=== PATIENT | male | born 1945 | race Hispanic/Latino ===

== ENCOUNTER 2017-11-21 06:57 | Day surgery (SDC) | payer MEDICARE ==
[2017-11-15 10:04] VITALS: BMI 24.4
[2017-11-21] MEDS ORDERED: Lidocaine 2% Jelly (Uro-Jet) ONE (07:54)
[2017-11-21] MEDS ORDERED: cefTRIAXone IV 1 gm in Dextros 50 ML IVPB ONE (07:54)
[2017-11-21] MEDS ORDERED: Iohexol 240 (50 ml) ONE (07:54)
[2017-11-21] MEDS ORDERED: Propofol 10 mg/ml Inj (20 ML) ONE ×2 (08:57→10:12)
[2017-11-21] MEDS ORDERED: Midazolam 2 MG/2 ML VIAL ONE (09:55)
[2017-11-21] MEDS ORDERED: ePHEDrine 50 mg/ml Inj ONE (10:33)
[2017-11-21] MEDS ORDERED: HYDROmorphone 0.5 mg/0.5 ml ISec IVP PRN (10:51)
--- NOTE | 2017-11-21 11:08 | PCM.SURG1 ---
Surgeon's Initial Post Op Note - Surgeon's Notes Surgeon: Natalie Tamayo Flame Gouger: none Type of Anesthesia: IV Sedation Pre-Operative Diagnosis: Hx of bladder tumor Operative Findings: same. Abnormal bladder mucosa. R ureteral tumor Post-Operative Diagnosis: same Operation Performed: cysto, bilat rtg pyelogram. Bladder bx and fulg. R ureteroscopy, R ureteral bx and fulg. EUA Specimen/Specimens Removed: urine. bladder bx. ureteral bx Estimated Blood Loss: EBL {In ML}: 0 Blood Products Given: N/A Drains Used: No Drains Date of Surgery/Procedure: 11/21/17 Time of Surgery/Procedure: 10:55
--- NOTE | 2017-11-21 11:18 | RAD ---
PROCEDURE: Intraoperative Fluoroscopy. HISTORY: HX. OF BLADDER TUMOR FINDINGS: Fluoroscopic assistance was provided 38 seconds fluoroscopy time utilized. Radiation dose = 1.14 mGy. Please refer to the operative report from Dr. HAYS, [place].
[2017-11-21 12:19] VITALS: RESP 16
--- NOTE | 2017-11-21 12:21 | RAD ---
HISTORY: History of bladder tumor COMPARISON: Comparison made with prior abdominal radiograph dated 05/23/2017 FINDINGS: BOWEL: Nonobstructive/nonspecific bowel gas pattern. No free air. BONES: Mild degenerative spondylosis lumbar spine with levoscoliosis centered at the L2-L3 level. OTHER FINDINGS: None. IMPRESSION: Nonobstructive/nonspecific bowel gas pattern. TheNo active disease.
[2017-11-21] MEDS ORDERED: Iodixanol 320 MG/ML 100 ML BOTTLE IV ONE (12:36)
[2017-11-21 15:49] VITALS: BP 122/68; PULSE 62; TEMP 97.8; O2SAT 95
--- NOTE | 2017-11-22 09:13 | CT ---
PROCEDURE: CT Abdomen and Pelvis with and without intravenous contrast HISTORY: Dx: R distal ureteral tumor COMPARISON: None. TECHNIQUE: Axial images of the abdomen were obtained in the pre contrast, portal venous and delayed phases of enhancement. Coronal and sagittal reformats were generated. Contrast dose: Radiation dose: Total exam DLP = mGy-cm. This CT exam was performed using one or more of the following dose reduction techniques: Automated exposure control, adjustment of the mA and/or kV according to patient size, and/or use of iterative reconstruction technique. FINDINGS: LOWER THORAX: Elevated left hemidiaphragm. LIVER: Unremarkable. No gross lesion or ductal dilatation. GALLBLADDER AND BILE DUCTS: Unremarkable. PANCREAS: Unremarkable. No gross lesion or ductal dilatation. SPLEEN: Unremarkable. ADRENALS: Unremarkable. No mass. KIDNEYS AND URETERS: Markedly severe right hydroureteronephrosis with a transition point in the distal ureter roughly 3 centimeters from the UVJ. VASCULATURE: Unremarkable. No aortic aneurysm. BOWEL: Extensive colonic diverticulosis. APPENDIX: Normal appendix. PERITONEUM: Unremarkable. No free fluid. No free air. LYMPH NODES: Unremarkable. No enlarged lymph nodes. BLADDER: Unremarkable. REPRODUCTIVE: Unremarkable. BONES: No acute fracture. OTHER FINDINGS: Ventral abdominal wall hernia containing omental fat. . IMPRESSION: Markedly severe right hydroureteronephrosis with a transition point in the distal ureter roughly 3 centimeters from the UVJ.
--- NOTE | 2017-11-22 17:18 | OP ---
PROCEDURE DATE: 11/21/2017 PREOPERATIVE DIAGNOSIS: History of bladder tumor. POSTOPERATIVE DIAGNOSES: History of bladder tumor. Abnormal bladder mucosa. Right ureteral tumor. PROCEDURES: Cystoscopy. Bilateral retrograde ureteropyelogram. Bladder biopsy and fulguration. Right ureteroscopy. Right ureteral biopsy and fulguration. OPERATING SURGEON: Karen Montgomery M.D. DESCRIPTION OF PROCEDURE: The patient received perioperative antibiotics. The patient received anesthesia as per anesthesiologist. The patient was placed in lithotomy position. Genitalia prepped and draped sterilely. A 22-Namibian cystoscope sheath was introduced under direct vision. Procedure was performed under video endoscopic control as well as under fluoroscopic control. The urethra, prostate, and bladder were inspected with 30-degree lens. FINDINGS: There was no stricture in the anterior urethra. There was evidence of a prostatic hypertrophy. There were no mucosal lesions within the prostatic urethra. There was no bladder neck contraction. The bladder was inspected. There was noted to be moderate bladder trabeculation. There were areas of [id number] erythema of the bladder. A farm loan representative area of the bladder was biopsied using cold cup biopsy forceps. Fulguration was performed with ball electrode and electrocautery. Biopsy was obtained from the posterolateral wall on the left. There were no papillary bladder tumors. There was no bladder diverticulum. There was no bladder stone. The ureteral orifices at first could not be identified. The orifices were subsequently identified. Retrograde ureteropyelogram was performed on the left side. There was no evidence of filling defect or obstruction within the left ureter or collecting system. The right ureteral orifice was identified by symmetric location. The orifices were close together and close to the bladder neck as well as medially located. The right ureteral orifice was seen; however at first, the retrograde pyelogram could not be performed as the catheter could not be inserted due to the angulation and position of the ureteral orifice. A 0.035-inch guidewire was inserted into the orifice. The guidewire encountered obstruction in the level of the distal ureter. An open-ended catheter was inserted over the guidewire. Iodinated contrast dye was instilled. Again, obstruction was encountered. There was a filling defect outlined by the contrast, approximately 1 cm in size. There was no flow of contrast proximally. A 7-Namibian short rigid ureteroscope was advanced through the cystoscope sheath into the bladder. The ureteral orifices were identified by the working wire in place. A second wire was advanced through the ureteroscope. The ureteroscope was advanced in atraumatic fashion into the ureter. A papillary urothelial tumor was identified ureteroscopically. Multiple cold cup biopsies were obtained with the 3-Namibian biopsy forceps. Fulguration of the biopsy sites was performed with the ball electrode and electrocautery. Hemostasis was complete. The ureteroscope was removed. The bladder was reinspected with 70-degree lens to confirm the above findings. The site of the previous biopsy was identified and was not bleeding. The bladder was then drained. Cystoscope and sheath removed. Exam under anesthesia/rectal examination was performed. Prostate was supple and smooth. There was no abnormal pelvic mass fixation or induration. The patient was returned to supine position. The patient tolerated the procedure without complication. Karen Montgomery MD
== END 2017-11-21 15:35 | disposition home or self-care (01) ==
LOC: C.SDS 06:57
PROVIDERS: ATTEND Urology
DX: D49.4 Neoplasm of unspecified behavior of bladder (principal)
CPT/HCPCS: 52354; 74018; 74178; 82948; 87086; 88305; 88342; C1758; C1769; C1887; J0696; Q9966; Q9967

== ENCOUNTER 2018-01-30 05:45 | Inpatient (IN) | payer MEDICARE ==
[2018-01-11 08:01] VITALS: BMI 36.1
[2018-01-30] MEDS ORDERED: Bupivacaine HCl 0.5% PF (30 ml) Inj ONE (07:18)
[2018-01-30] MEDS ORDERED: ceFAZolin IV 1 gm in Dextrose 2 GM/100 ML BAG IVPB ONE (07:18)
[2018-01-30] MEDS ORDERED: Propofol 10 mg/ml Inj (20 ML) ONE (07:53)
[2018-01-30] MEDS ORDERED: Midazolam 2 MG/2 ML VIAL ONE (07:53)
[2018-01-30] MEDS ORDERED: Rocuronium 10 mg/ml (5 ml) ONE ×2 (09:09→09:41)
[2018-01-30] MEDS ORDERED: Succinylcholine Chloride 20 mg/ml Syr (5 ml) IV ONE (09:42)
[2018-01-30] MEDS ORDERED: Phenylephrine 10 mg/ml Inj ONE (09:42)
[2018-01-30] MEDS ORDERED: Neostigmine Methylsulfate 3mg/3ml Syringe IV ONE ×2 (09:42→10:21)
[2018-01-30] MEDS ORDERED: ePHEDrine 50 mg/ml Inj ONE (09:42)
--- NOTE | 2018-01-30 10:39 | PCM.SURG1 ---
Surgeon's Initial Post Op Note - Surgeon's Notes Surgeon: Martha Watson Chemical Manager: Natalie Montgomery Type of Anesthesia: General Endo Pre-Operative Diagnosis: R ureteral tumor,. R hydronephrosis Operative Findings: same Post-Operative Diagnosis: same Operation Performed: Robot-assisted R laparoscopic Nephro-ureterectomy Specimen/Specimens Removed: R kidney and ureter Estimated Blood Loss: EBL {In ML}: 100 Blood Products Given: N/A Drains Used: Gerber Wood Post-Op Condition: Good Date of Surgery/Procedure: 01/30/18 Time of Surgery/Procedure: 10:05
--- NOTE | 2018-01-30 10:44 | CP.PCM.PN ---
Subjective - Date & Time of Evaluation Date of Evaluation: 01/30/18 Time of Evaluation: 10:43 - Subjective Subjective: Consult dictated #[id number] Objective - Vital Signs/Intake and Output Vital Signs (last 24 hours): Temp Pulse Resp BP Pulse Ox 97.4 F L 91 H 20 146/78 96 01/30/18 06:12 01/30/18 06:12 01/30/18 06:12 01/30/18 06:12 01/30/18 06:12 Intake and Output: 01/30/18 01/30/18 06:59 18:59 Intake Total 1800 Output Total 50 Balance 1750 - Medications Medications: Current Medications Hydromorphone HCl (Dilaudid) 0.5 mg IVP Q5M PRN PRN Reason: Pain, severe (8-10) Stop: 01/30/18 12:25 Ondansetron HCl (Zofran Inj) 4 mg IVP ONCE PRN PRN Reason: Nausea/Vomiting Stop: 01/30/18 12:26
[2018-01-30] MEDS: HYDROmorphone 0.5 mg/0.5 ml ISec IVP PRN ×2 (11:35→12:48)
[2018-01-30] MEDS ORDERED: Lactated Ringer's 1,000 ML IV ONE (12:00)
[2018-01-30] MEDS: Potassium Ch 20mEq in D5-1/2NS 1,000 ML IV SCH (21:56)
--- NOTE | 2018-01-31 07:06 | OP ---
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 PROCEDURE PERFORMED: Right nephroureterectomy with bladder cuff and a partial cystectomy and a closure of the bladder. COMPLICATION: None. TYPE OF ANESTHESIA: General. PREOPERATIVE ANTIBIOTICS: 2 gm Ancef. DRAINS: CESAR and Nassar. DESCRIPTION OF PROCEDURE: The patient was taken to the OR, placed in supine position. After anesthetic was obtained, the patient was placed in right lateral position up. All the pressure points were padded. Table was flexed and then the patient was prepped and draped in usual manner. Then incision was made above the umbilicus, lateral. The patient was obese, so we adjusted these ports and then additional robotic port was placed medial to that as well as a total of five ports were placed and one ice cream freezer assistant port was placed. Then robot was docked, and then adhesions were first taken down and then retroperitoneal space was mobilized, and then colon and duodenum were kocherized and IVC was identified. Then adrenal was freed and upper pole was freed and then inferiorly ureter was found and ureter was lifted up, clip was placed, and then along the IVC, the kidney was mobilized laterally until we came to the hilum. Then we put a linear stapler vascular device and then adrenal was and then laterally kidney was freed and mobilized completely. Then ureter was further mobilized downward. Once we came to the pelvic ring, we readjusted the robot and further ureter was mobilized all the way down to the UVJ and then a part of the bladder along with cuff was resected and removed cleanly. Bladder closure was done and then serosal and muscular layer were done and then CESAR drain was placed. Then the specimen was placed in the #15 bag and removed; and then incision was closed using #1 PDS in running fashion and then skin was reapproximated with chanel. The patient tolerated the procedure well without complication. Annika Watson MD [facility] # [id number]
[2018-01-31 07:33] LABS: BASO % 0.5 % (0.0-2.0); EOS # 0.3 K/uL (0.0-0.7); EOS % 2.8 % (0.0-4.0); LYMPH # 1.6 K/uL (1.0-4.3); LYMPH % 17.6 % (20.0-40.0); MEAN CELL VOLUME 88.7 fL (80.0-94.0); MEAN CORPUSCULAR HEMOGLOBIN 30.9 pg (27.0-31.0); MEAN CORPUSCULAR HGB CONC 34.8 g/dL (33.0-37.0); MEAN PLATELET VOLUME 8.7 fL (7.2-11.7); MONO # 1.1 K/uL (0.0-0.8); MONO % 11.6 % (0.0-10.0); NEUT # 6.2 K/uL (1.8-7.0); NEUT % 67.5 % (50.0-75.0); NRBC % 0.1 % (0.0-2.0); RBC 4.15 Mil/uL (4.40-5.90); WHITE BLOOD COUNT 9.2 K/uL (4.8-10.8)
[2018-01-31 07:36] LABS: HEMOGLOBIN 12.8 g/dL (12.0-18.0)
--- NOTE | 2018-01-31 08:06 | CON ---
DATE: 01/30/2018 REASON FOR CONSULTATION: For medical management of hypertension, diabetes mellitus, status post right nephroureterectomy. HISTORY OF PRESENT ILLNESS: Mr. Davis is a 72-year-old male with past medical history of hypertension, hyperlipemia, diabetes mellitus, bladder CA, status post surgery in 2003, has been in remission until 2017 when he has recurrence of bladder tumor, cauterized twice, but on recent cystoscopy, found to have lesion in the right ureter, and the patient is scheduled for nephroureterectomy this morning. The patient underwent procedures successfully without any complications, and the patient is being admitted post surgery. Medical consult requested for medical management. When I examined the patient in the recovery area this morning and later this evening, the patient is complaining of soreness at the surgical site, feeling tired, but denies any headache or dizziness. Denies any chest pain, shortness of breath, or wheezing. Denies any nausea or vomiting. Denies any other neurological symptoms. All other symptoms reviewed and was found to be negative. PAST MEDICAL HISTORY: As described hyperlipemia, hypertension, diabetes mellitus, and bladder CA. PAST SURGICAL HISTORY: Tumor resection of the bladder in 2003, multiple cystoscopies. FAMILY HISTORY: Nothing contributory to the present illness. SOCIAL HISTORY: Denies alocohol. Denies any smoking at the present time. He was former smoker, quit more than 20 years ago. Denies any drug abuse. PERSONAL HISTORY: He is single, having 2 children. ALLERGIES: HE IS ALLERGIC TO BCG. MEDICATIONS: His medications include glipizide XL 2.5 mg daily, metformin 850 mg b.i.d., Norvasc 10 mg daily, Zocor 10 mg at bedtime, Toprol XL 75 mg p.o. daily, and vitamin B12 of 500 mcg daily. REVIEW OF SYSTEMS: As described in history of present illness. All other systems reviewed and were found to be negative. PHYSICAL EXAMINATION: GENERAL: Elderly obese male, lying in bed, in no acute distress. VITAL SIGNS: Blood pressure 114/69, pulse 69, respirations 20, temperature 97.5 degree Fahrenheit, O2 sat is 95% on 2 liters nasal cannula. HEENT: Pupils equal, round, and reacting to light and accommodation. Extraocular muscles intact. No icterus. No pallor. No oral thrush. No pharyngeal congestion. NECK: Supple. No JVD. LUNGS: Bilateral vesicular breath sounds. No wheezing. No rhonchi. CVS: S1 and S2 present and regular. ABDOMEN: Soft. Bowel sounds present. Tenderness present at the surgical site. Nassar in place. VESSEL ORDINARY SEAMAN: Alert, awake, and oriented x3. No focal deficits noted. EXTREMITIES: No edema. Palpable peripheral pulses. LABORATORY DATA: Accu-chek 128, 192, 169, 133. ASSESSMENT AND PLAN: Elderly male with history of hypertension, hyperlipemia, diabetes mellitus, history of bladder carcinoma, status post tumor resection with recurrence, now with , underwent nephroureterectomy this morning and the patient is being admitted postoperatively for postoperative care. Medical consult requested for medical management of his hypertension and diabetes. 1. Status post nephroureterectomy right for tumor recurrence in the ureter. 2. Hypertension. 3. Diabetes mellitus. 4. Hyperlipemia. PLAN: We will continue with pain medications and IV fluids. Advance diet as per Urology. Blood pressure is stable. We will hold blood pressure medications for tonight. Repeat labs in the morning. Restart all his medications once he is on p.o. diet. Monitor his blood pressure, do Accu-Chek before every meals and at bedtime with sliding scale coverage. Alter bed to chair as ordered. We will add further recommendation as his clinical course progresses. Alonzo Childress MD
[2018-01-31] MEDS: (Novolin R) Insulin Human Regular 100 units/ml vial SC SCH ×4 (08:17→22:15)
[2018-01-31 09:03] LABS: ALB/GLOB RATIO 1.1 (1.0-2.1); ALBUMIN 3.1 g/dL (3.5-5.0); ALT/SGPT 33 U/L (21-72); AST/SGOT 29 U/L (17-59); BLOOD UREA NITROGEN 14 mg/dL (9-20); GFR AFRICAN-AMERICAN > 60; GFR NON-AFRICAN AMERICAN 60
[2018-01-31] MEDS: Potassium Ch 20mEq in D5-1/2NS 1,000 ML IV SCH ×2 (09:07→17:15)
--- NOTE | 2018-01-31 09:22 | CP.PCM.PN ---
Subjective - Date & Time of Evaluation Date of Evaluation: 01/31/18 Time of Evaluation: 09:22 - Subjective Subjective: Progress note dictated #[id number] Objective - Vital Signs/Intake and Output Vital Signs (last 24 hours): Temp Pulse Resp BP Pulse Ox 98.3 F 71 18 111/65 94 L 01/31/18 07:00 01/31/18 07:00 01/31/18 07:00 01/31/18 07:00 01/31/18 07:00 Intake and Output: 01/31/18 01/31/18 06:59 18:59 Intake Total 1960 Output Total 912 Balance 1048 - Medications Medications: Current Medications Docusate Sodium (Colace) 100 mg PO TID DOMI Last Admin: 01/31/18 09:09 Dose: 100 mg Hydromorphone/Sodium Chloride (Dilaudid Pharmaceutical Representative) 3.6 mg IV Q4H PRN; Protocol PRN Reason: Pain, severe (8-10) Potassium Chloride/Dextrose/Sod Cl (Potassium Chl 20 Meq In D5-1/2ns) 1,000 mls @ 100 mls/hr IV .Q10H DOMI Last Admin: 01/31/18 09:07 Dose: 100 mls/hr Cefazolin Sodium 1,000 mg/ (Sodium Chloride) 100 mls @ 100 mls/hr IVPB Q8H DOMI PRN Reason: Protocol Last Admin: 01/31/18 09:09 Dose: 100 mls/hr Insulin Human Regular (Novolin R) 1 unit SC ACHS DOMI PRN Reason: Protocol Last Admin: 01/31/18 08:17 Dose: 1 u - Labs Labs: 01/31/18 07:00 01/31/18 07:00
[2018-01-31] MEDS ORDERED: Alum-Mag Hydrox-Simethicone Susp (30 mL) PO PRN (09:52)
--- NOTE | 2018-01-31 10:53 | PCM.URO ---
Urology Progress Note - General General: No Complaints, Tolerating Diet - Subjective Abdominal Pain: Yes Flank Pain: No Nausea: No Vomiting: No Hematuria: No Dsypnea: No Chest Pain: No Fever & Chills: No - Objective Lab Studies: Reviewed Lab Results Last 24 Hours: Laboratory Results - last 24 hr 01/30/18 01/30/18 01/30/18 11:25 16:10 21:38 WBC RBC Hgb Hct MCV MCH MCHC RDW Plt Count MPV Neut % (Auto) Lymph % (Auto) Woodruff % (Auto) Eos % (Auto) Baso % (Auto) Neut # (Auto) Lymph # (Auto) Woodruff # (Auto) Eos # (Auto) Baso # (Auto) Sodium Potassium Chloride Carbon Dioxide Anion Gap BUN Creatinine Est GFR ( Amer) Est GFR (Non-Af Amer) POC Glucose (mg/dL) 192 H 169 H 133 H Random Glucose Calcium Total Bilirubin AST ALT Alkaline Phosphatase Total Protein Albumin Globulin Albumin/Globulin Ratio 01/31/18 01/31/18 01/31/18 06:41 07:00 07:00 WBC 9.2 RBC 4.15 L Hgb 12.8 D Hct 36.8 MCV 88.7 MCH 30.9 MCHC 34.8 RDW 14.0 Plt Count 164 MPV 8.7 Neut % (Auto) 67.5 Lymph % (Auto) 17.6 L Woodruff % (Auto) 11.6 H Eos % (Auto) 2.8 Baso % (Auto) 0.5 Neut # (Auto) 6.2 Lymph # (Auto) 1.6 Woodruff # (Auto) 1.1 H Eos # (Auto) 0.3 Baso # (Auto) 0.0 Sodium 136 Potassium 4.3 Chloride 102 Carbon Dioxide 25 Anion Gap 14 BUN 14 Creatinine 1.2 Est GFR ( Amer) > 60 Est GFR (Non-Af Amer) 60 POC Glucose (mg/dL) 163 H Random Glucose 148 H Calcium 8.0 L Total Bilirubin 0.8 AST 29 ALT 33 Alkaline Phosphatase 49 Total Protein 5.8 L Albumin 3.1 L D Globulin 2.8 Albumin/Globulin Ratio 1.1 Intake & Output: Intake & Output 01/30/18 01/31/18 01/31/18 18:59 06:59 18:59 Intake Total 2100 1960 Output Total 380 912 Balance 1720 1048 Intake: IV 2100 Intake, IV Amount 1600 Right Hand 1600 Oral 360 Output: Drainage 20 12 Lower Abdomen 12 Urine 360 900 Urethral (Nassar) 900 Vital Signs: Vital Signs - 24 hr 01/30/18 01/30/18 01/30/18 11:00 11:15 11:30 Temperature Pulse Rate 56 L 58 L 58 L Respiratory 17 14 18 Rate Blood Pressure 110/58 L 109/58 L 112/57 L O2 Sat by Pulse 95 97 97 Oximetry 01/30/18 01/30/18 01/30/18 11:45 12:00 12:15 Temperature Pulse Rate 61 61 62 Respiratory 22 21 20 Rate Blood Pressure 114/59 L 120/60 115/60 O2 Sat by Pulse 98 98 99 Oximetry 01/30/18 01/30/18 01/30/18 12:30 12:45 13:00 Temperature Pulse Rate 63 62 64 Respiratory 20 18 17 Rate Blood Pressure 118/61 111/58 L 108/56 L O2 Sat by Pulse 95 100 100 Oximetry 01/30/18 01/30/18 01/30/18 13:30 14:00 15:00 Temperature 97.3 F L 97.5 F L Pulse Rate 67 67 69 Respiratory 19 17 20 Rate Blood Pressure 111/57 L 115/57 L 114/69 O2 Sat by Pulse 99 98 95 Oximetry 01/30/18 01/30/18 01/31/18 19:22 23:30 04:15 Temperature 97.7 F 97.8 F Pulse Rate 66 69 72 Respiratory 20 20 Rate Blood Pressure 108/65 114/66 O2 Sat by Pulse 95 Oximetry 01/31/18 07:00 Temperature 98.3 F Pulse Rate 71 Respiratory 18 Rate Blood Pressure 111/65 O2 Sat by Pulse 94 L Oximetry - Physical Exam Abdominal Exam: Soft, Non-Tender. absent: Non-Distended Bowel Sounds: Hypoactive (Lungs-clear Heart- reg rhythm) Dressing: Dry, Intact Back: No CVA Tenderness Genitalia: Without Inflammation Urinary Catheter Draining Well: Yes Urine Color: Clear, Yellow Extremities: Normal: Bilateral - Male Phallus: Normal Scrotum: Normal Testes: Normal: Bilateral - Plan Advance Diet: Yes Wound Care: Yes Catheter Care: Yes Intake & Output: Yes See Orders: Yes Additional Information: Imp: progressing well, post R nephroureterectomy - Date & Time of Note Date: 01/31/18 Time: 10:35
[2018-01-31 16:03] VITALS: RESP 20
--- NOTE | 2018-02-01 01:24 | PN ---
DATE: 01/31/2018 SUBJECTIVE: The patient was seen and examined at the bedside. The patient is still complaining of soreness at the surgical site. He is still trying to get out of bed, on pump to start pain medication. Denies any new complaints. PHYSICAL EXAMINATION: GENERAL: Elderly male, lying in bed, in no acute distress. VITAL SIGNS: Blood pressure 112/66, pulse 69, respirations 20, temperature 98.1 degrees Fahrenheit, O2 sat is 95% on 2 liters nasal cannula. Intake is 4060 mL, output is 1292 mL. HEENT: Pupils equal, reacting to light and accommodation. Extraocular muscles intact. No icterus. No pallor. NECK: Supple. No JVD. LUNGS: Bilateral vesicular breath sounds. Bilateral occasional basal crackles heard. CVS: S1 and S2 present and regular. ABDOMEN: Soft. Bowel sounds present. Tenderness present. Dressing in place. Drain with minimal fluid. Muffled bowel sounds. RETORT KILN BURNER: Alert, awake, and oriented x3. No focal deficits noted. EXTREMITIES: No edema. Palpable peripheral pulses. MEDICATIONS: Include Maalox as needed, cefazolin 1 gm IV every 8 hours, Colace 100 mg p.o. t.i.d., Dilaudid GENERAL PASSENGER AGENT IV every 4 hours p.r.n., Protonix 40 mg daily, IV fluids 100 mL an hour. LABORATORY DATA: Labs from this morning: WBC 9.2, hemoglobin 12.8, hematocrit 36.8, platelets 164. Sodium 136, potassium 4.3, chloride 102, bicarb 25, BUN 14, creatinine 1.2, glucose 163, calcium 8. Total bilirubin 0.8, AST 29, ALT 33, alkaline phosphatase 49, total protein 5.8, albumin 3.1. ASSESSMENT AND PLAN: Elderly male with history of hypertension, hyperlipidemia, diabetes mellitus, history of bladder cancer, status post tumor resection but recurrence of the tumor affecting the ureter, underwent nephroureterectomy. The patient's blood pressure is stable without medication postoperatively. We will hold antihypertensives. The patient is still on clear liquids. We will restart his medications once the patient is advanced to solids. We will give Maalox as needed for dyspepsia and Protonix 40 mg IV daily. Out of bed to chair. Wound care and pain management as per Urology. creative services producer for discharge planning. Alonzo Childress MD [facility] # [id number]
[2018-02-01] MEDS: Potassium Ch 20mEq in D5-1/2NS 1,000 ML IV SCH ×2 (03:19→13:48)
[2018-02-01] MEDS: (Novolin R) Insulin Human Regular 100 units/ml vial SC SCH ×4 (07:46→22:53)
[2018-02-01] MEDS ORDERED: ceFAZolin IV 1 gm in Dextrose 1 GM/50 ML BAG IVPB SCH (10:00)
--- NOTE | 2018-02-01 10:07 | CP.PCM.PN ---
Subjective - Date & Time of Evaluation Date of Evaluation: 02/01/18 Time of Evaluation: 10:07 - Subjective Subjective: Progress note dictated #[id number] Objective - Vital Signs/Intake and Output Vital Signs (last 24 hours): Temp Pulse Resp BP Pulse Ox 98.4 F 74 20 136/76 95 02/01/18 07:15 02/01/18 07:15 02/01/18 07:15 02/01/18 07:15 02/01/18 07:15 Intake and Output: 02/01/18 02/01/18 06:59 18:59 Intake Total 2080 Output Total 1145 Balance 935 - Medications Medications: Current Medications Al Hydrox/Mg Hydrox/Simethicone (Maalox Plus 30 Ml) 30 ml PO Q8H PRN PRN Reason: Indigestion / Heartburn Docusate Sodium (Colace) 100 mg PO TID [facility] Last Admin: 01/31/18 17:14 Dose: 100 mg Hydromorphone/Sodium Chloride (Dilaudid Predatory Hunter) 3.6 mg IV Q4H PRN; Protocol PRN Reason: Pain, severe (8-10) Last Admin: 02/01/18 08:02 Dose: 3.6 mg Potassium Chloride/Dextrose/Sod Cl (Potassium Chl 20 Meq In D5-1/2ns) 1,000 mls @ 100 mls/hr IV .Q10H DOMI Last Admin: 02/01/18 03:19 Dose: Not Given Cefazolin Sodium 1,000 mg/ (Sodium Chloride) 100 mls @ 100 mls/hr IVPB Q8H DOMI PRN Reason: Protocol Insulin Human Regular (Novolin R) 1 unit SC ACHS DOMI PRN Reason: Protocol Last Admin: 02/01/18 07:46 Dose: Not Given Pantoprazole Sodium (Protonix Inj) 40 mg IVP DAILY [facility] Last Admin: 01/31/18 10:18 Dose: 40 mg - Labs Labs: 01/31/18 07:00 01/31/18 07:00
--- NOTE | 2018-02-01 15:42 | PCM.URO ---
Urology Progress Note - General General: Tolerating Diet - Subjective Abdominal Pain: Yes (mild, less) Flank Pain: No Nausea: No Vomiting: No Hematuria: No Dsypnea: No Chest Pain: No Fever & Chills: No - Objective Lab Results Last 24 Hours: Laboratory Results - last 24 hr 01/31/18 16:29 POC Glucose (mg/dL) 128 H Intake & Output: Intake & Output 01/31/18 02/01/18 02/01/18 18:59 06:59 18:59 Intake Total 1280 2080 950 Output Total 1980 1145 801 Balance -700 935 149 Intake: Intake, IV Amount 800 1600 800 Right Hand 800 1600 800 Oral 480 480 150 Output: Drainage 30 20 1 Lower Abdomen 30 20 1 Urine 1950 1125 800 Urethral (Nassar) 1950 1125 800 Other: # Bowel Movements 0 Vital Signs: Vital Signs - 24 hr 01/31/18 01/31/18 02/01/18 16:00 23:20 02:38 Temperature 98.5 F Pulse Rate 68 76 73 Respiratory 20 Rate Blood Pressure 119/73 O2 Sat by Pulse 95 Oximetry 02/01/18 02/01/18 07:00 07:15 Temperature 98.4 F 98.4 F Pulse Rate 74 74 Respiratory 20 20 Rate Blood Pressure 135/77 136/76 O2 Sat by Pulse 95 95 Oximetry - Physical Exam Abdominal Exam: Soft, Non-Tender, Non-Distended Wound: Clean, Healing Well Back: No CVA Tenderness Genitalia: Without Inflammation Urinary Catheter Draining Well: Yes Urine Color: Clear, Yellow Extremities: Normal: Bilateral - Male Phallus: Normal Scrotum: Normal Testes: Normal: Bilateral - Plan Advance Diet: Yes Discontinue Drain: Yes Wound Care: Yes Catheter Care: Yes Ambulation - Out of Bed: Yes Discontinue Intravenous Fluids: Yes Intake & Output: Yes See Orders: Yes Additional Information: IMP: progressing well - Date & Time of Note Date: 02/01/18 Time: 15:42
[2018-02-01] MEDS: Oxycodone/Acetaminophen 5/325 mg Tab PO PRN (19:15)
--- NOTE | 2018-02-01 23:19 | PN ---
DATE: 02/01/2018 SUBJECTIVE: The patient was seen and examined at bedside. The patient is feeling much better, still complains of soreness at the surgical site, sitting in chair, in no acute distress. PHYSICAL EXAMINATION: VITAL SIGNS: Blood pressure 126/67, pulse 78, respirations 20, temperature 98.1 degrees Fahrenheit, O2 sat 97% on 2 L nasal cannula, intake is 3360 mL, output is 3125 mL. HEENT: Pupils equal, round, and reacting to light and accommodation. Extraocular muscles intact. No icterus. No pallor. No oral thrush. No pharyngeal congestion. NECK: Supple. No JVD. LUNGS: Bilateral vesicular breath sounds. No wheezing. No rhonchi. CVS: S1 and S2 present and regular. ABDOMEN: Soft. Bowel sounds decreased. Dressing in place. Tenderness present. PRODUCTION SUPV: Alert, awake, and oriented x3. No focal deficits noted. EXTREMITIES: No edema. Palpable peripheral pulses. MEDICATIONS: Include Maalox, Ancef 1 gm IV every 8 hours, Colace 100 mg p.o. t.i.d., Percocet one tablet daily, Protonix 40 mg daily. LABORATORY DATA: Accu-cheks are 178, 128, 163. ASSESSMENT AND PLAN: Elderly male with hypertension, hyperlipidemia, diabetes mellitus, history of bladder carcinoma with recurrence, status post nephroureterectomy. The patient's blood pressure is stable. We will start the patient on blood pressure medication. The patient's pathology reports shows invasive papillary urothelial carcinoma, high grade. The patient is not started on his blood pressure medication or hypoglycemics. We will restart the medications once the patient is advanced to p.o. solids. His Accu-cheks are fair without any coverage. We will follow up with Urology, continue with pain management as per Urology. The patient does not want to go to subacute rehab, instead wants to be discharged home. Alonzo Childress MD
[2018-02-02] MEDS: Oxycodone/Acetaminophen 5/325 mg Tab PO PRN ×3 (03:17→13:51)
[2018-02-02 06:58] LABS: BASO % 0.3 % (0.0-2.0); EOS # 0.5 K/uL (0.0-0.7); EOS % 5.3 % (0.0-4.0); HEMOGLOBIN 12.1 g/dL (12.0-18.0); LYMPH # 1.8 K/uL (1.0-4.3); LYMPH % 19.1 % (20.0-40.0); MEAN CELL VOLUME 88.6 fL (80.0-94.0); MEAN CORPUSCULAR HEMOGLOBIN 30.9 pg (27.0-31.0); MEAN CORPUSCULAR HGB CONC 34.8 g/dL (33.0-37.0); MEAN PLATELET VOLUME 8.7 fL (7.2-11.7); MONO # 1.1 K/uL (0.0-0.8); MONO % 11.5 % (0.0-10.0); NEUT % 63.8 % (50.0-75.0); NRBC % 0.1 % (0.0-2.0); RBC 3.92 Mil/uL (4.40-5.90); RED CELL DISTRIBUTION WIDTH 14.5 % (11.5-14.5); WHITE BLOOD COUNT 9.4 K/uL (4.8-10.8)
[2018-02-02 07:36] LABS: ALB/GLOB RATIO 1.1 (1.0-2.1); ALBUMIN 3.2 g/dL (3.5-5.0); ALT/SGPT 21 U/L (21-72); AST/SGOT 20 U/L (17-59); BLOOD UREA NITROGEN 11 mg/dL (9-20); CALCIUM 8.7 mg/dl (8.6-10.4); GFR AFRICAN-AMERICAN > 60; GFR NON-AFRICAN AMERICAN 54
[2018-02-02] MEDS: (Novolin R) Insulin Human Regular 100 units/ml vial SC SCH ×2 (07:45→11:40)
--- NOTE | 2018-02-02 09:26 | CP.PCM.PN ---
Subjective - Date & Time of Evaluation Date of Evaluation: 02/02/18 Time of Evaluation: 09:26 - Subjective Subjective: Progress note dictated #[id number] Objective - Vital Signs/Intake and Output Vital Signs (last 24 hours): Temp Pulse Resp BP Pulse Ox 98.7 F 85 20 125/75 94 L 02/02/18 07:30 02/02/18 07:35 02/02/18 07:30 02/02/18 07:30 02/02/18 07:30 Intake and Output: 02/02/18 02/02/18 06:59 18:59 Intake Total 1400 Output Total 3650 Balance -2250 - Medications Medications: Current Medications Al Hydrox/Mg Hydrox/Simethicone (Maalox Plus 30 Ml) 30 ml PO Q8H PRN PRN Reason: Indigestion / Heartburn Docusate Sodium (Colace) 100 mg PO TID [facility] Last Admin: 02/01/18 19:15 Dose: 100 mg Cefazolin Sodium 1,000 mg/ (Sodium Chloride) 100 mls @ 100 mls/hr IVPB Q8H DOMI PRN Reason: Protocol Last Admin: 02/02/18 01:46 Dose: 100 mls/hr Insulin Human Regular (Novolin R) 1 unit SC ACHS DOMI PRN Reason: Protocol Last Admin: 02/02/18 07:45 Dose: Not Given Oxycodone/Acetaminophen (Percocet 5/325 Mg Tab) 1 tab PO Q4H PRN PRN Reason: Pain, severe (8-10) Stop: 02/04/18 16:19 Last Admin: 02/02/18 08:43 Dose: 1 tab Pantoprazole Sodium (Protonix Inj) 40 mg IVP DAILY [facility] Last Admin: 02/01/18 10:47 Dose: 40 mg - Labs Labs: 02/02/18 06:44 02/02/18 06:44
--- NOTE | 2018-02-02 12:55 | CP.PCM.PN ---
Subjective - Date & Time of Evaluation Date of Evaluation: 02/02/18 Time of Evaluation: 12:48 - Subjective Subjective: PATIENT WAS ADMITTED FOR RIGHT URETERAL TUMOR AAOX3/ ABD BINDER AND MAYNARD IN PLACE/ DENIE CHEST PAIN OR SOB COMPLAINT OF ABD DISCOMFORT / NO SIGN OF DISTRESS NOTED Objective - Vital Signs/Intake and Output Vital Signs (last 24 hours): Temp Pulse Resp BP Pulse Ox 98.7 F 85 20 125/75 94 L 02/02/18 07:30 02/02/18 07:35 02/02/18 07:30 02/02/18 07:30 02/02/18 07:30 Intake and Output: 02/02/18 02/02/18 06:59 18:59 Intake Total 1400 Output Total 3650 Balance -2250 - Medications Medications: Current Medications Al Hydrox/Mg Hydrox/Simethicone (Maalox Plus 30 Ml) 30 ml PO Q8H PRN PRN Reason: Indigestion / Heartburn Last Admin: 02/02/18 10:46 Dose: 30 ml Docusate Sodium (Colace) 100 mg PO TID [facility] Last Admin: 02/02/18 10:38 Dose: 100 mg Cefazolin Sodium 1,000 mg/ (Sodium Chloride) 100 mls @ 100 mls/hr IVPB Q8H DOMI PRN Reason: Protocol Last Admin: 02/02/18 10:40 Dose: 100 mls/hr Insulin Human Regular (Novolin R) 1 unit SC ACHS DOMI PRN Reason: Protocol Last Admin: 02/02/18 07:45 Dose: Not Given Oxycodone/Acetaminophen (Percocet 5/325 Mg Tab) 1 tab PO Q4H PRN PRN Reason: Pain, severe (8-10) Stop: 02/04/18 16:19 Last Admin: 02/02/18 08:43 Dose: 1 tab Pantoprazole Sodium (Protonix Inj) 40 mg IVP DAILY [facility] Last Admin: 02/02/18 10:38 Dose: 40 mg - Labs Labs: 02/02/18 06:44 02/02/18 06:44 Assessment and Plan - Assessment and Plan (Free Text) Assessment: PATIENT SEEN AND EXAMNIED AT THE BEDSIDE LUNG SOUND CLEAR POLO DRESSING DRY AND INTACT NO BM/ PATIENT IS PASSING A LOT OF GAS ABD SOFT / POSITIVE BOWEL SOUND ALL QUADRANT DISCUSS WITH DR JIMENEZ AND DR HAYS WHO CLEAR PATIENT FOR DC PLACE UNDER DR JMIENEZ AT [facility] MEDICATION NEW ORDER PERCOCET PO 1 TAB Q4H FOR PAIN ACTIVITY TOLERATED AND FACILITY PROTOCOL/ AMBULATORY DAILY PER DR HAYS WOUND CARE AND DRESSING CHANGE DAILY WITH BETADINE PER DR HAYS KEEP ABD BINDER UNTIL FURTHER ORDER FROM DR HAYS MAYNARD CATH CARE AND PER FACILITY PROTOCOL / DR HAYS WILL REVALUATE NEXT WEEK CALL DR HAYS FOR FURTHER ORDER DISCUSS WITH PATIENT WHO AGREE AND VERBALIZED UNDERSTANDING
[2018-02-02 16:14] VITALS: BP 112/72; PULSE 75; TEMP 97.9; O2SAT 96
--- NOTE | 2018-02-02 23:46 | PN ---
DATE: 02/02/2018 SUBJECTIVE: The patient was seen and examined at bedside. The patient is feeling much better. Denies any new complaints, tolerating p.o. feeds. Did not have bowel movement yet. Denies any new complaints. PHYSICAL EXAMINATION: GENERAL: Elderly male, lying in bed, in no acute distress. VITAL SIGNS: Blood pressure 112/72, pulse 75, respirations 20, temperature 97.9 degrees Fahrenheit, O2 sat is 96% on room air. HEENT: Pupils equal and reacting to light and accommodation. Extraocular muscles intact. No icterus. No pallor. No oral thrush. No pharyngeal congestion. NECK: Supple. No JVD. LUNGS: Bilateral vesicular breath sounds. No wheezing. No rhonchi. CVS: S1, S2 present, regular. ABDOMEN: Soft. Bowel sounds present. Dressing in place. Drain removed. MANUFACTURING TEST ENGINEER: Alert, awake, and oriented x3. No focal deficits noted. EXTREMITIES: No edema. Palpable peripheral pulses. MEDICATIONS: Include Maalox 30 mL every 8 hours, Ancef 1 gm IV every 8 hours, Colace 100 mg p.o. t.i.d., Percocet 1 tab p.o. every 6 hours p.r.n., Protonix 40 mg daily. LABORATORY DATA: Labs from this morning: WBC 9.4, hemoglobin 12.1, hematocrit 34.7, platelets 159. Sodium 137, potassium 4.3, chloride 103, bicarbonate 25, BUN 11, creatinine 1.3, glucose 137, calcium 8.7, AST 20, ALT 21, alkaline phosphatase 59, total protein 6.2, albumin 3.2. ASSESSMENT AND PLAN: Elderly male with history of hypertension, diabetes mellitus, hyperlipidemia, history of bladder carcinoma, status post resection with recurrence and tumor spread to the ureter, status post nephroureterectomy. The patient is doing fairly well postoperatively. Blood pressure is still stable off the medications. The patient is not started on hypoglycemics, as the patient is not completely able to eat as before. We will restart all his p.o. medications once the patient is able to eat regularly. We will monitor blood pressure, do Accu Chek q.a.c. and at bedtime. The patient is for possible discharge to subacute rehab at [facility] [place]. Alonzo Childress MD [facility] # [id number]
[2018-02-03] MEDS ORDERED: Pantoprazole 40 mg EC Tab PO SCH (10:00)
== END 2018-02-02 18:00 | disposition short-term general hospital (02) | DRG 657 ==
LOC: C.9S 05:45 → C.6T 14:54
PROVIDERS: ADMIT Urology; ATTEND Urology
PROC: 0TT04ZZ Resection of Right Kidney, Percutaneous Endoscopic Approach (ICD-10-PCS; 2018-01-30)
PROC: 8E0W4CZ Robotic Assisted Procedure of Trunk Region, Percutaneous Endoscopic Approach (ICD-10-PCS; 2018-01-30)
PROC: 0TT64ZZ Resection of Right Ureter, Percutaneous Endoscopic Approach (ICD-10-PCS; principal; 2018-01-30 07:45)
DX: C66.1 Malignant neoplasm of right ureter (principal); N13.39 Other hydronephrosis; E11.9 Type 2 diabetes mellitus without complications; I10 Essential (primary) hypertension; E78.5 Hyperlipidemia, unspecified; Z85.51 Personal history of malignant neoplasm of bladder; Z87.891 Personal history of nicotine dependence

== ENCOUNTER 2018-04-24 06:33 | Day surgery (SDC) | payer MEDICARE ==
[2018-02-02 17:52] VITALS: BMI 35.5
[2018-04-24] MEDS ORDERED: cefTRIAXone 1 gm 1 GM/100 ML BAG IVPB ONE (07:34)
[2018-04-24] MEDS ORDERED: Lidocaine 2% Jelly (Uro-Jet) ONE (07:34)
[2018-04-24] MEDS ORDERED: Midazolam 2 MG/2 ML VIAL ONE (09:57)
[2018-04-24] MEDS ORDERED: Propofol 10 mg/ml Inj (20 ML) ONE (09:57)
[2018-04-24] MEDS: Iohexol 240 (50 ml) ONE ×2 (09:58→10:05)
[2018-04-24] MEDS ORDERED: HYDROmorphone 0.5 mg/0.5 ml ISec IVP PRN (10:43)
[2018-04-24] MEDS ORDERED: Lactated Ringer's 1,000 ML IV SCH (10:45)
--- NOTE | 2018-04-24 10:52 | PCM.SURG1 ---
Surgeon's Initial Post Op Note - Surgeon's Notes Surgeon: Natalie Montgomery Rn Or Lpn: none Type of Anesthesia: IV Sedation Pre-Operative Diagnosis: Hx of bladder tumor. Hx of R urteral tumor, Hx of R nephroureterectomy Operative Findings: abnormal mucosa R trigone Post-Operative Diagnosis: same Operation Performed: cystoscopy. L rtg pyelogram. Bladder bx and fulg. EUA Specimen/Specimens Removed: urine. bladder bx Estimated Blood Loss: EBL {In ML}: 0 Blood Products Given: N/A Drains Used: No Drains Post-Op Condition: Good Date of Surgery/Procedure: 04/24/18 Time of Surgery/Procedure: 10:30
[2018-04-24 12:23] VITALS: BP 135/75; PULSE 71; RESP 18; TEMP 97; O2SAT 100
--- NOTE | 2018-04-24 18:02 | RAD ---
Date of service: 04/24/2018 HISTORY: BLADDER TUMOR COMPARISON: 11/21/2017 FINDINGS: BOWEL: Normal. No obstruction. No free air. BONES: Normal. OTHER FINDINGS: Scoliosis, secondary degenerative change at multiple levels. IMPRESSION: No significant or acute findings to account for/ related to the clinical presentation. No significant interval change compared to the prior examination(s).
--- NOTE | 2018-04-24 18:04 | RAD ---
Date of service: 04/24/2018 PROCEDURE: Intraoperative Fluoroscopy. HISTORY: HX. OF BLADDER TUMOR FINDINGS: Fluoroscopic assistance was provided for retrograde study and left stent placement.. Please refer to the operative report from Dr. HAYS, [place]. Total fluoroscopic time (continuous mode) utilized during the procedure 6.6 (seconds). Dose report: DLP 0.949 (mGy/m2):
--- NOTE | 2018-04-25 19:01 | OP ---
PROCEDURE DATE: 04/24/2018 PREOPERATIVE DIAGNOSES: History of bladder tumor. History of right ureteral tumor. Status post right nephroureterectomy. POSTOPERATIVE DIAGNOSES: History of bladder tumor. History of right ureteral tumor. Status post right nephroureterectomy. No recurrent tumor. Abnormal bladder mucosa. PROCEDURES: Cystoscopy. Left retrograde pyelogram. Bladder biopsy and fulguration. Removal of foreign body suture from the bladder. DESCRIPTION OF PROCEDURE: As follows. The patient was placed in lithotomy position. The patient received anesthesia by the anesthesiologist. The genitalia prepped and draped in sterile fashion. Perioperative antibiotics were administered. A 22-Vietnamese cystoscope sheath was introduced under direct vision. Urethra, prostate, bladder were inspected with 30 degrees and 70 degrees lenses. The procedure was performed under fluoroscopic control as well as video endoscopic control. FINDINGS: There was no stricture in the anterior urethra. There was evidence of trilobar prostatic hypertrophy, predominantly lateral lobe hypertrophy. Prostatic urethra was 3 cm in length. There was no bladder tumor. There was no bladder stone. There was a free-floating suture within the bladder as well as two sutures that were partially exposed in the area of the right trigone. The left ureteral orifice was located at the midline, further to the right side than the normal expected location. Left retrograde ureteropyelogram was performed. Iodinated contrast dye was instilled via a cone-tip catheter into left ureteral orifice. The ureter and kidney were viewed sequentially. There was no evidence of filling defect within the ureter or collecting systems. There was excellent drainage noted on the post drainage film. There was abnormal mucosa located on the area of the right trigone. This area was reddened and slightly granular and slightly raised. Biopsy was obtained with cold cup biopsy forceps. Fulguration was performed. Hemostasis with cone-tip electrode and electrocautery. The sutures were removed as well. The bladder was reinspected with 70 degrees lens to confirm the above findings. Hemostasis was complete. There was no other abnormal findings. There was mild bladder trabeculation. There was no bladder diverticulum. There was no bladder stone. The bladder was then drained. Cystoscope and sheath removed. Rectal examination/exam under anesthesia was performed. There was no abnormal pelvic mass fixation or induration. Prostate was supple and smooth. The patient tolerated procedure without complication. [place] MD [place] # [id number]
== END 2018-04-24 12:30 | disposition home or self-care (01) ==
LOC: C.SDS 06:33
PROVIDERS: ATTEND Urology
DX: N30.80 Other cystitis without hematuria (principal); Z90.5 Acquired absence of kidney; N40.0 Benign prostatic hyperplasia without lower urinary tract symptoms
CPT/HCPCS: 52204; 74018; 82948; 87086; 88104; 88305; J0696; Q9966

== ENCOUNTER 2018-09-13 07:09 | Outpatient (CLI) | payer MEDICARE | END 2018-09-13 07:10 | disposition home or self-care (01) | LOC: C.LAB 07:09 | DX: E11.9 Type 2 diabetes mellitus without complications (principal); I10 Essential (primary) hypertension; E78.5 Hyperlipidemia, unspecified ==

== ENCOUNTER 2018-11-22 07:16 | Outpatient (CLI) | payer MEDICARE | END 2018-11-22 07:17 | disposition home or self-care (01) | LOC: C.LAB 07:16 | DX: C67.9 Malignant neoplasm of bladder, unspecified (principal); N40.1 Benign prostatic hyperplasia with lower urinary tract symptoms ==

== ENCOUNTER 2018-12-13 07:15 | Outpatient (CLI) | payer MEDICARE | END 2018-12-13 07:16 | disposition home or self-care (01) | LOC: C.LAB 07:15 ==